=== PATIENT | female | born 1990 | race Caucasian/White ===

== ENCOUNTER 2016-08-25 16:25 | Outpatient (CLI) | payer MEDICAID ==
[~2016-08-25] VITALS: Ht 157.5 cm; Wt 93.3 kg
[2016-08-25] MEDS ORDERED: PRENAT PO (16:38)
[2016-08-25 16:39] VITALS: BP 106/62; PULSE 86; RESP 18; Ht 157.5 cm; Wt 93.3 kg
--- NOTE | 2016-08-25 18:20 | TRIAGE ---
OB Triage Datetime Report Generated by CPN: 08/25/2016 18:20 Datetime: 08/25/2016 17:01 Vaginal Exam Dilatation (cms): 0.0 Exam By: KHEMANI Datetime: 08/25/2016 16:36 Assessment Type: Triage Maternal Assessment Level of Consciousness: Fully Conscious DTR's/Clonus: DTRs 2+; No Clonus Headache: Denies Blurred Vision: No Respiratory Effort: Unlabored; Regular Rhythm; Equal Expansion Breath Sounds, Left: Clear and Equal Breath Sounds, Right: Clear and Equal Nausea/Vomiting: Denies RUQ Epigastric Pain: Denies Lower Extremities Edema: None Degree: None Upper Extremities Edema: None Degree: None Facial Edema: None Fall Risk Assessment History of Falling: (0) No Secondary Diagnosis: (0) No Ambulatory Aid: (0) Bedrest/Nurse Assist IV Therapy: (0) No Gait: (0) Normal/Bedrest/Immobile Mental Status: (0) Oriented to Own Ability Fall Score: 0 Fall Risk Score Definition: No Risk: No action required Datetime: 08/25/2016 16:34 Time of Arrival: 08/25/2016 16:21 EGA: 24.2 Arrived By: Wheelchair Arrived From: Home Chief Complaint: PT HERE C/O UC'S SINCE 0600 Movement: Present Contractions: Irregular Rupture of Membranes: Denies Vaginal Bleeding: None Vaginal Discharge: Denies Recent Sexual Intercouse: Denies Abdominal Trauma: Not Applicable Patient Complaints: Contractions; Cramping; Back Pain Provider Notified: KEI Initial Plan: EFM, SVE, FFN Datetime: 08/25/2016 16:32 Labor Evaluation Monitor Mode: External Heart Rate Monitor Mode: External US
--- NOTE | 2016-08-25 18:47 | HP ---
Date/Time of Note Date/Time of Note DATE: 08/25/16 TIME: 18:43 OB - History Hx of Present Free Text/Dictation 26 YO with IUP at 24 weeks who reported to L&D for feeling premature contractions. she reports ever since she came to hospital she does not have any pain or cramps or UC any more. she denies vaginal bleeding or LOF per vagina. she reports good FM Care: Good Care Ultrasounds: Normal mid trimester US Obstetrical Complications: None Medical Complications: None Past Family/Social History * Past Medical, Surgical, Family and Obstetric Histories reviewed from chart. OB Admission Exam Vital Signs Vital Signs Vital Signs Date Time Temp Pulse Resp B/P Pulse Ox O2 Delivery O2 Flow Rate FiO2 08/25/16 16:39 98.3 86 18 106/62 Room Air Physical Exam HEENT: WNL Heart: Rhythm Normal Lungs: Clear, Equal Abdomen: WNL Extremities: Normal Reflexes: Normal Cervical Dilatation: None Effacement: 0% Station: -3 OB Assessment/Plan Other Assessment: Not in labor, because she does not have any pain and cervix is closed. FFN + d/w pt. strict PTL precautions given. patient would like to go home Other plan: d/c home with pelvic rest and strict PTL precautions. ZULMA CHOUDHURY MD Aug 25, 2016 18:46
== END 2016-08-25 18:30 | disposition home or self-care (01) ==
LOC: OBT 16:25 → L-D 16:26 → OBT 18:30
PROVIDERS: ATTEND Obstetrics & Gynecology
DX: O60.02 Preterm labor without delivery, second trimester (principal); Z3A.24 24 weeks gestation of pregnancy
CPT/HCPCS: 82731; Z7500; G0463